=== PATIENT | male | born 1985 | race Caucasian/White ===

== ENCOUNTER → 2023-09-26 | Outpatient (CLI) | payer OTHER ==
[~2023-09-26] MED LIST: IBUP600 PO; SERT100
[2023-09-27 18:28] LABS: COTININE, URN, SCREEN Negative ng/mL (Cutoff 100)
== END | disposition home or self-care (01) ==
LOC: LAB SHORT 07:49 → LAB 07:49
PROVIDERS: Orthopaedic Surgery
DX: Z01.812 Encounter for preprocedural laboratory examination (principal); Z87.891 Personal history of nicotine dependence

== ENCOUNTER 2023-10-12 05:07 | Day surgery (SDC) | payer OTHER ==
[~2023-10-12] VITALS: Ht 177.8 cm; Wt 92.1 kg
[~2023-10-12 05:07] MED LIST changes: +Lactated Ringer's 1,000 ML ONE
[2023-10-12] MEDS ORDERED: Lactated Ringer's 1,000 ML IV ONE ×2 (06:09→13:13)
[2023-10-12] MEDS ORDERED: FentaNYL Citrate 50 MCG/ML 2 ML Injection ONE ×4 (11:48→14:27)
[2023-10-12] MEDS ORDERED: propofoL 20 ML IV ONE (11:48)
[2023-10-12] MEDS ORDERED: Midazolam HCl 1MG / ML 2ML Vial ONE (11:48)
[2023-10-12] MEDS ORDERED: Ropivacaine 0.5% HCL/PF 5 MG/ML 30ML Vial ONE (11:54)
[2023-10-12] MEDS ORDERED: EPINEPhrine HCl 1 MG/ML 1ML Amp ONE (11:57)
[2023-10-12] MEDS ORDERED: NS 50 ML IV ONE (11:59)
[2023-10-12] MEDS ORDERED: CeFAZolin Sodium 2,000 MG VIAL ONE (11:59)
[2023-10-12] MEDS ORDERED: Ondansetron HCl 2 MG / ML 2ML Vial ONE (12:36)
[2023-10-12] MEDS ORDERED: Dexamethasone Sod Phos 10 MG/ML 1ML VIAL ONE (12:36)
[2023-10-12] MEDS ORDERED: Ketorolac Tromethamine 30mg Vial ONE (12:37)
--- NOTE | 2023-10-12 12:55 | NUR ---
10/12/23 1255 Maria Elena Lorenzo PT LATERAL RIGHT, HUGGING 1X PILLOW BETWEEN ARMS,1X PILLOW BETWEEN KNEES, 1X GEL PAD UNNDER LOWER KNEE AND 1X UNDER LOWER ANKLE. ROPIVACAINE 0.5% (30ML) MIXED WITH EPI 1MG/ML (0.15ML)TO MAKE ROPIVACAINE 0.5% WITH EPI 1:200,000; ON FIELD.
[2023-10-12] MEDS ORDERED: EPINEPhrine HCl 1 MG/ML 1ML Amp XX ONE (13:12)
[2023-10-12] MEDS ORDERED: Ropivacaine 0.5% HCl/Pf 5 MG/ML 20ML VIAL INJ ONE (13:12)
[2023-10-12] MEDS ORDERED: HYDROmorphone HCl/Pf 1MG SYR ONE (15:05)
--- NOTE | 2023-10-12 15:30 | NUR ---
10/12/23 1530 Amairani Bynum PT. VERBALIZES DILAUDID IS HELPING HIS PAIN. STATES "IT'S ALOT BETTER."
[2023-10-15 07:22] VITALS: BP 119/81
[2023-10-15] MEDS ORDERED: Lactated Ringer's 1,000 ML IV ONE (07:22)
--- NOTE | 2023-10-15 09:42 | NUR ---
10/15/23 0941 OMKAR SOLORIO LATE ENTRY CHARTING D/T COMPUTER SYSTEM GOING DOWN FACILITY WIDE.
== END 2023-10-12 16:15 | disposition home or self-care (01) ==
LOC: ORSCSDS 05:07
PROVIDERS: Orthopaedic Surgery
PROC: 0MBM0ZZ Excision of Left Hip Bursa and Ligament, Open Approach (ICD-10-PCS; principal; 2023-10-12 12:45)
PROC: 0LU Tendons, Supplement (ICD-10-PCS; principal; 2023-10-12 12:45)
DX: S76.312A Strain of muscle, fascia and tendon of the posterior muscle group at thigh level, left thigh, initial encounter (principal); Z87.891 Personal history of nicotine dependence; Z79.899 Other long term (current) drug therapy
CPT/HCPCS: C1713; J0171; J0690; J1100; J1170; J1885; J2250; J2405; J2704; J2795; J3010; J7120

== ENCOUNTER → 2024-12-19 | Outpatient (CLI) | payer OTHER ==
[~2024-12-19] MED LIST changes: -Lactated Ringer's 1,000 ML ONE
== END | disposition home or self-care (01) ==
LOC: LAB 06:50 → LAB SHORT 06:50 → LAB FUT 12-05 14:35
DX: N20.0 Calculus of kidney (principal); R39.14 Feeling of incomplete bladder emptying
CPT/HCPCS: 81050

== ENCOUNTER → 2024-12-29 | Outpatient (CLI) | payer OTHER | LOC: LAB SHORT 06:00 → LAB 06:00 → LAB FUT 12-19 15:50 | DX: N20.0 Calculus of kidney (principal); R39.14 Feeling of incomplete bladder emptying | CPT/HCPCS: 81050 ==